=== PATIENT | female | born 1995 | race Two or more races ===

== ENCOUNTER 2022-01-02 06:50 | Day surgery (SDC) | payer OTHER ==
[2022-01-02] MEDS ORDERED: IBU800 MG PO (12:12)
== END 2022-01-02 15:45 | disposition home or self-care (01) ==
LOC: CIR.AMB 06:50
PROVIDERS: ATTEND Obstetrics & Gynecology Gynecology
DX: Z30.2 Encounter for sterilization (principal); Z20.822 Contact with and (suspected) exposure to COVID-19